=== PATIENT | male | born 1960 | race Caucasian/White ===

== ENCOUNTER → 2019-09-10 13:21 | Outpatient (CLI) | payer MEDICARE, SELFPAY ==
--- NOTE | 2019-09-10 14:00 | SP.MBSS_ITS ---
PRIMARY / SECONDARY DIAGNOSIS: dysphagia (R13.12) REFERRING PHYSICIAN: TOMAS Stevens CURRENT DIET: mechanical soft textures, thin liquids DENTITION: edentulous MENTAL STATUS: sufficient for participation RESPIRATORY STATUS: O2 via room air REASON FOR REFERRAL: The Patient is a 58 year old male referred for a modified barium swallow (MBS) study to objectively assess the Patients oropharyngeal swallow function under fluoroscopy secondary to the diagnosis of amyotrophic lateral sclerosis. MEDICAL HISTORY: Amyotrophic lateral sclerosis, hypertension PREVIOUS MODIFIED BARIUM SWALLOW STUDY: None ASSESSMENT PARAMETERS: The Patient participated in a Modified Barium Swallow (MBS) study on 09/10/2019. This study was recorded in the lateral view and images were sent to PACs for storage. Scoring was completed through each trial using the 8- point Penetration-Aspiration Scale (PAS) and the Videofluoroscopic Scale Score (VSS), and summarized via the Modified Barium Swallow Impairment Profile (MBSImP) and the Bolus Residue Scale (BRS), with severity scoring through the Dysphagia Severity Rating Scale (DSRS), the Swallowing Performance Scale (SPS) and the Karen ALS Severity Scale (ALSSS), and recommended diet textures through the International Dysphagia Diet Standardisation Initiative (IDDSI) RESULTS OF THE EVALUATION: The Patient presents with moderate oropharyngeal dysphagia (DSRS: 4; SPS: 5; ALSSS: 5-6) with grade III SILENT aspiration of thin liquids and pharyngeal phase dysmotility secondary to the diagnosis of amyotrophic lateral sclerosis OBJECTIVE ASSESSMENT OF SWALLOW FUNCTION (QUANTITATIVE ? PER TRIAL): PENETRATION / ASPIRATION SCALE (VEGA): 1 = does not enter airway 2 = enters airway/above vocal folds/ejected 3 = enters airway/above vocal folds/not ejected 4 = enters airway/contacts vocal folds/ejected 5 = enters airway/contacts vocal folds/not ejected 6 = enters airway/below vocal folds/ejected 7 = enters airway/below vocal folds/not ejected despite effort 8 = enters airway/below vocal folds/no effort VIDEOFLOROSCOPIC SCALE SCORE (VEGA): Grade I = aspiration of material that has penetrated into the laryngeal vestibule, intact cough reflex Grade II = aspiration < 10 % of the bolus, intact cough reflex Grade III = aspiration of < 10 % of the bolus, reduced cough reflex or aspiration of > 10 % of the bolus, intact cough reflex Grade IV = aspiration of > 10 % of the bolus, reduced cough reflex PENETRATION / ASPIRATION SCALE (SCORE) WITH VIDEOFLOROSCOPIC SCALE SCORE: Thin liquid - 5 mL tsp.: 1 Thin liquids via cup (single sip): 1 Thin liquids via cup (single sip): 3 Thin liquids via cup (single sip): 1 Thin liquids via straw (sequential swallows): 8 ? Grade III Thin liquids via straw (chin tuck): 1 Thin liquids via straw (chin tuck): 1 Thin liquids via straw (chin tuck): 1 Pudding via spoon: 1 Thin liquids via straw (chin tuck): 1 Regular textured cookie: 1 Thin liquids via straw (chin tuck): 1 Thin liquids via straw (chin tuck): 1 [place] thickened liquids via cup (single sip): 1 [place] thickened liquids via cup (single sip): 1 [place] thickened liquids via cup (single sip): 1 OBJECTIVE ASSESSMENT OF SWALLOW FUNCTION (QUANTITATIVE ? AGGREGATE): MODIFIED BARIUM SWALLOW IMPAIRMENT PROFILE (MBSImP) LABIAL SEAL: 1 (of 4) interlabial escape, no progression TONGUE CONTROL: 2 (of 3) posterior escape < 50% BOLUS PREPARATION / MASTICATION: 2 (of 3) disorganized chewing; pieces unchewed BOLUS TRANSPORT / LINGUAL MOTION: 2 (of 4) slowed motion ORAL RESIDUE: 2 (of 4) residue collection on oral structures INITIATION OF PHARYNGEAL SWALLOW: 2 (of 4) posterior surface of epiglottis SOFT PALATE ELEVATION: 1 (of 4) trace column between soft palate & pharyngeal wall LARYNGEAL ELEVATION: 1 (of 3) partial superior movement / approximation ANTERIOR HYOID EXCURSION: 1 (of 2) partial movement EPIGLOTTIC MOVEMENT: 1 (of 2) partial inversion LARYNGEAL VESTIBULE CLOSURE: 1 (of 2) incomplete closure PHARYNGEAL STRIPPING WAVE: 1 (of 2) present / diminished PE SEGMENT OPENIN (of 3) partial distension / duration / obstruction TONGUE BASE RETRACTION: 3 (of 4) wide column of contrast PHARYNGEAL RESIDUE: 3 (of 4) majority of contrast remaining ESOPHAGEAL BOLUS CLEARANCE: 1 (of 4) esophageal retention BOLUS RESIDUE SCALE (BRS): 6 (of 6) residue in valleculae, pharyngeal wall, & piriforms OBJECTIVE ASSESSMENT OF SWALLOW FUNCTION (SEVERITY GRADING): DYSPHAGIA SEVERITY RATING SCALE (DSRS): 4 (moderate) SWALLOWING PERFORMANCE SCALE (SPS): 5 (moderate) KAREN ALS SEVERITY SCALE (ALSSS): 5-6 (of 10) limited to soft foods / liquefied OBJECTIVE ASSESSMENT OF SWALLOW FUNCTION (QUALITATIVE): ORAL PREPARATORY PHASE: mastication inefficiency with prolonged mastication, with incomplete bolus breakdown further complicating pharyngeal phase motility; sufficient anterior oral containment during oral manipulation; preserved management of breathing / bolus formation. ORAL TRANSITIONAL PHASE: slowed / intermittently delayed oral transportation with fragmented swallowing (piecemeal deglutition) and incomplete bolus consolidation; impaired oral clearance without side specific consolidation; occasional premature posterior bolus loss PHARYNGEAL PHASE: mild pharyngeal phase dyssynchrony reduction in hyolaryngeal excursion and duration resulting inconsistent laryngeal vestibule pressure generated to expel penetrated material; significant pharyngeal dysmotility most prominently with semi-solids and solid textures with at times significant post prandial consolidation within the vallecula and pyriforms; mild velopharyngeal insufficiency without nasoregurgitation ESOPHAGEAL PHASE: mild post prandial retention within the upper esophageal sphincter and upper 3rd of the esophagus no obvious esophageal phase abnormalities observed. CONTRIBUTING / COMPLICATING FACTORS AND NOTABLE FINDINGS: weak cued volitional cough intensity generated to expel penetrated material (dystussia); absent cough in response to tracheobronchial aspiration; RESPONSE TO STRATEGIES: all deficits managed successfully with reduction in bolus rate / volume adjustments, diet texture / viscosity adjustments, and execution of the chin tuck posture. DYSPHAGIA ASSOCIATED MEDICAL CONSIDERATIONS / INTERVENTION CONSIDERATIONS: The Patient was noted to SILENTLY aspirate with thin liquids, with clinical assessment at bedside relying on identification of classic overt signs and symptoms of aspiration considered unreliable. I would discourage clinical advancement past nectar thickened liquids without completion of a repeat modified barium swallow study due to the extent of aspirate identified that was SILENT in nature. I would consider the Patient to be at a higher risk of aspiration related medical complications / aspiration pneumonia / aspiration related pulmonary syndrome secondary to the diagnosis of amyotrophic lateral sclerosis, the presence of dysphagia and extensive pharyngeal phase impairment, presence of SILENT aspiration identified under fluoroscopy, potential for tracheobronchial aspiration of more dense viscosities, his compromised airway defenses (dystussia), and his suboptimal dentition (partial edentulous status), with no guarantee of prolonged tolerance of nectar thickened liquids. I would recommend continued careful monitoring of pulmonary functioning. I would consider this Patient to be a high risk for malnutrition and dehydration due to the extent of recommended liquid viscosities / diet texture restrictions, and the related negative impact on palatability / intake pleasure / quality of life and anticipated smaller PO intake quantities, higher risk for early satiety with recommended thicker viscosities, and reduced rate of intake with slower viscosities, poor oral control and concomitant anterior fluid loss, recent unintended weight loss, the presence of neurogenic comorbidities, and the severity of dysphagia. The Patient may require intervention to reduce the risk of malnutrition, with considerations for food enrichment, oral nutritional supplementation, and likely considerations for alternative means of nutrition. I would strongly consider a referral to a registered clinical dietitian. I would consider implementation of the Long Free Water Protocol (FFWP) following Patient and family education I would consider the Patient to be a higher risk of non-compliance with dietary recommendations secondary to the presence of cognitive abnormalities, cost / financial considerations; distaste of altered liquid viscosities / diet texture recommendations and their negative impact on quality of life, with overall low compliance rates reported (40%; Chaitanya et al. 2012). I would consider the Patients quality of life if the Patient and Patient?s family request advancement to less restrictive diet due to the progressive nature of the Patient?s disorders, ONLY if all parties comprehend the severity of the Patient?s swallow deficits and concomitant medical complications associated with silent aspiration. Otherwise a follow up Modified Barium Swallow study is indicated prior to advancement to thin liquids. INTERVENTION RECOMMENDATIONS AND CONSIDERATIONS: The Patient continued skilled speech-language intervention targeting diet texture management and training / implementation of recommended compensatory strategies; training and implementation of a home oral care protocol to reduce the effects of xerostomia and improve / maintain the integrity of the oral mucosa reducing the risk of aspiration related pulmonary complications; training, implementation, and Patient / caregiver education regarding implementation of the Long Free Water Protocol (FFWP); Patient and caregiver education regarding dysphagia associated with amyotrophic lateral sclerosis; and Patient / caregiver training targeting meal preparation / thickened liquid preparation POST ASSESSMENT EDUCATION: The results and recommendations of the assessment were discussed with the Patient immediately following assessment completion, with the Patient verbalizing understanding and agreement with all recommendations and education provided. I discussed factors impacting effects of aspiration, to include the quantity of aspiration, the depth of aspiration (trachea or distal airways), and the physical properties of the aspirate. We discussed the potential consequences of oropharyngeal dysphagia, to include pulmonary complications from tracheobronchial aspiration; potential for airway obstruction / asphyxiation; potential and currently experienced inadequate oral intake because of dysphagia; reduced liquid intake resulting in dehydration; reduced caloric intake resulting in unintentional and potentially medically complicating loss of weight; impairment in mental and physical condition, and increased risk for mortality / . We discussed potential complicating factors with nutritional management and dysphagia, and discussed that decisions to commence enteral tube feeding should be carefully balanced against the individual?s known wishes and impact on his / her quality of life. We discussed the benefits and risks associated with alternative means of nutrition, with increased access to caloric supplementation and reduce hydration deficits, in addition to possible reduction in stress associated with mealtimes, though gastrostomy feeding does not significantly reduce aspiration risk and may lead to reduced quality of life. DIET TEXTURE RECOMMENDATIONS: Will recommend a mechanical soft textured (IDDSI: 5), nectar thickened liquid (IDDSI: 2) diet RECOMMENDED COMPENSATORY STRATEGIES: Distant supervision (though this may be complicated given his independent status), execution of the chin tuck posture, reduced bolus volume / rate of ingestion, liquid chaser at reasonable intervals, alternate bites and sips, seated upright at 90 degrees during PO intake, remain upright for 30-60 minutes post meal (GERD precaution), medications one at a time with purees. IMAGE COUNT: [id number] Sal Nation M.A., CCC-AUTOMATIC DRY STARCH OPERATOR, CBIS MBSImP Certified, LSVT Certified [facility] Speech-Language Pathology Department [email or web address]
== END ==
LOC: RAD 13:22
PROVIDERS: Referring Provider Nurse Practitioner Family; Visit Provider Nurse Practitioner Family
DX: R13.10 Dysphagia, unspecified (principal)
CPT/HCPCS: 76000; 92611

== ENCOUNTER 2019-09-12 09:00 | Outpatient (RCR) | payer MEDICARE, SELFPAY ==
--- NOTE | 2019-08-06 13:47 | HP.PTEVAL ---
Patient's Visit Information VISHAL MONZON is a 58 year old M referred to Physical Therapy by FLOR StevensC with a diagnosis of ALS. Date of Evaluation: 08/06/19 Physical Therapist: Elliot Perez, ALCIRAT, OCS, CSCS - Visit Plan Frequency: 2-3x /Week Duration: 4-6 Weeks Plan: 2-3x/week for 4-6 weeks for... 1. rollotu and stretch ITB, quads, HS adn teach home stretches. 2. general postural and LE, (Df, hips,knees,) strength to HEP. 3. Balance with SLS, foam and VOR to I HEP and functional balance, careful with foot drop. - Subjective Findings: Neurologist sent for PT. Has ALS and been diagnosed for 18 months. No therapy up to this point needed. Started neuro with hand deformities. Falls every now and then about 1-2x/week, no cane or walker. I just don't Has wh walker adn cane. Typically doesn't get hurt when he falls and does not wish to use them. No dizzyness. Sleeping is fine 10 hours per night. Spends day sitting around the house. No regular exercises. Lives with niece. She is home alld ay. He cleans and cooks, bathes. Steps and ramp at home which he uses the ramp. steps are too hard. Dresses self, slow but no problems. Can tie shoes but hard to do. Zips pants but cannot button them. Not employed , on disability due to hands. Was a delivery truck driver heavy for 22 years. - Objective Walks slightly hunched adn B foot slap slow and trendelenberg B slightly but safe adn I on firm flat surface back to [facility] room and for FGA. Appears safer with walker adn cane and Mod I with these devices today. Trasnfers with UE I sit to stadn and supine to sit. Steps require B UE and plots of pulling as he does not shift his weight well. UE AROM WFL and strength 4- except L ext rotation shoulder 3+ with some slight pain. LE AROM WFL except DF limited to -5 degrees against gravity and passively to neutral. Strength DF3-, ev 3, inv 3 adn PF 3+ all B. Hip strength abd and ext 3+ and flexion 4-. knee flexion and extension 4-. Very tight quads and HS at -25 90/90 test, also ITB tightness B. reflexes 3/3 patella and achilles. Coordination to reciprocal heel tap is OK but toe tap hard due to DF weakness. Has ALS hand deformities B with proximal phalange in ext. Pt will see OT today. Talks fairly well but deficits in enunciationa nd volume and wants to see speech which he says he is. Will need a prescription to have that done here. - Balance Scores Functional Gait Assessment Score: 22 % Disability: 26.6700 CATSIB Score (Max score 120 seconds): 88 - Goals Goal 1:: Pt I in appropr balance, strength, stretch ex to help manage deficits via HEP Goal Time Frame: 4-6 Weeks Goal 2:: Pt feel 50% improved in balance and mobility Goal Time Frame: 4-6 Weeks Goal 3:: FGA to diminish fall risk. Goal Time Frame: 4-6 Weeks Goal 4:: LEFS <50% disability. Goal Time Frame: 4-6 Weeks - Rehabilitation Potential Physical Therapy Diagnosis: ALS related weakness and tightness and imbalance Rehabilitation Potential: Questionable - Anticipated Interventions Patient/Client Instruction: Educate patient on: Condition, Plan of Care For the Purpose of:: To improve muscle performance and motor function, To increase tolerance to activity/condition/position, To improve gait and locomotor functions, To improve safety Therapeutic Exercise to Include: Strength training, Postural training, Flexibilty training, Passive ROM, Active ROM For the Purpose of:: To improve muscle performance and motor function, To increase tolerance to activity/condition/position, To improve ability of physical actions for home/community/work/leisure, To improve safety Thank you for the opportunity to evaluate your patient. For Medicare and Medicare HMO plans, please review the plan of care and approve it. It will need to be FAXED BACK to us at [phone] for Medicare purposes. For Medicare only, by signing this I certify the plan of care. Please let me know if there are questions or concerns regarding this plan of care. Physician Signature: Date:
--- NOTE | 2019-08-06 19:47 | HP.OTEVAL_ITS ---
Patient's Visit Information VISHAL MONZON is a 58 year old M, referred to Occupational Therapy by Rosana Mcintosh, TOMAS, with a diagnosis of ALS. Date of Evaluation: 08/06/19 Occupational Therapist: Renetta Guzmán, OTR/L - Subjective Subjective: Arrived post PT eval. Vishal Greenwood noted he was recently diagnosed with ALS two months ago. He noted that he lives with niece (72 y/o) who is able to help as needed. He noted increased difficulty with turning keys, increased time with lower body dressing, and general fatigue management and maintaining independence. 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 Noted that he really started ?feeling the affects of ALS after losing job?. - ADLs Dressing: Pants, Socks, Shoes Fasteners: Tie shoes Eating: Use silverware, Cut food, Drink from glass Kitchen: Chop with knife, Peel fruits & vegetables, Open jars, Open bottle caps, Ziplock bags, Lift gallon of milk Yard: Mow lawn Comments: Mows yard in summer but not needed at this time. Miscellaneous: Write Comments: Timo is R hand dominant. - Objective Objective/Observation: Good skin integrity observed. Beginning of contracture formation starting at PIP of B hand; All PIP are able to be passively moved to neutral; thenar atrophy noted in bilateral thumbs. - ROM Shoulder: WFL Elbow: WFL Forearm: WFL Wrist: WFL MP: 2-5thR -10-0-92, -4-0-94, -11-0-87, -14-0-84; L -23-0-91, -25-0-94, see PIP: 2-5th R 30-103, 24-105 , 22-107, 20-99; L 42-94, 40-98, 46-100, 42-92 DIP: WFL ROM Comments: MP continued: L 4th -26-0-90, 5th -30-0-82. He is still able to make full composite. Able to complete thumb oppoisition to 2-4th fingers. - Strength Media Liaison Officer: flexed position 2 R 26, L 15; ext position R 29, L 15 Lateral Pinch: R 4, L 5 Tripod Pinch: R 2, L 3 Tip-to-Tip Pinch: R 3, L 2 - Sensation Sensation Comments: denies numbness or tingling. - Movement Ataxia: intact Muscle Tone: increase inflexor tone starting to be observed - Attention Attention: Normal - Quick DASH-Disab of Arm,Shoulder& Hand Quick DASH Score: 65.9075 - Goals Goal:: Timo to complete protective splinting program to promote decrease risk of contracture of B hands and maintain (I) for ADL/IADLS by d/c. Goal:: Timo to be (I) with adaptations and compensations for decreased dexterity and coordination secondary to ALDS and ways to adapt tasks to promote B hand use 4/5 trials 80% of the time by d/c. Goal:: Timo to be mod I with proper use and training of self-feeding, kitchen and simple meal prep, self-care tasks of grooming, dressing, and bathing with use of a/e, DME, and adaptive strategies and compensations to promote safety and general quality of life to maintain independence 4/5 trials 80% of the time by d/c. Goal:: Timo to completed daily use of protective splint measurements and application through wearing schedule to help decrease formation of contractures and promote increased ability to maintain motor movements while disease progresses by d/c. Goal:: Timo to be (i) to complete daily energy conservation techniques at home and in the community to promote increased ability to maintain indepdence and quality of life 4/5 trials 80% of the time by d/c. - Rehabilitation General Assessment: Vishal Greenwood completed OT evaluation on this date of 08/06/19. He has recently been diagnosed with ALS and experiencing a loss of independence and function in bilateral hands. He is looking for ways to maintain independence. Timo to complete skill OT to promote training in a/d, DME, and compensations to promote energy conservation, independence with ADL/IADls, as well as general quality of life. OT to work on HEP set up and training to promote maintained strength as able with energy conservation techniques to maintain independence. Timo to complete OT 1x weekly for the next 4 weeks. Rehabilitation Potential: Good - Anticipated Interventions Anticipated Interventions: A/AAROM/PROM, Strengthening, Scar Care, Modalities, Joint Protection/Energy Conservation, Fine Motor Coord/Francois, ADL Training, Education re assistive Equipment, Caregiver Training, Home Program - Visit Plan Frequency: 1x/Week Duration: 4 Weeks General Plan: Timo to complete weekly skilled Ot intervention to promote increased ability to complete energy conservation techniques into daily routine, maintain current independence and promote safety with ADL/IADLS, as well as contracture manage to help slow and cope with the progression of ALS for ADL/IADls. TEXT: Thank you for the opportunity to evaluate your patient. For Medicare and Medicare HMO plans, please review the plan of care and approve it. It will need to be FAXED BACK to us at [phone] for Medicare purposes. Please let me know if there are questions or concerns regarding this plan of care. Physician Signature: Date:
--- NOTE | 2019-08-27 10:19 | HP.PTDCSUM ---
HP - PT D/C Summary It has been my pleasure to treat VISHAL MONZON under orders from Rosana Mcintosh, CARSON-C, for the diagnosis of ALS for a total of 10 visit(s). Discharge Date: 08/27/19 Please see the following information for a summary of their discharge status. - Subjective Subjective: Legs feel stronger. Got exercises to do at home. - Overall Improvement % Improvement: 80 - Objective Objective/Function: FGA is +1. LEFS is 20 points better. Patient walking well, still has -3 active DF B and weakness anterior ankles 3- but is functioning well. Is I with HEP at counter for safety. - Goals Goal 1:: Pt I in appropr balance, strength, stretch ex to help manage deficits via HEP Goal 2:: Pt feel 50% improved in balance and mobility Goal Progress: Goal Met Goal 3:: FGA to diminish fall risk. Goal Progress: Progressing Goal 4:: LEFS <50% disability. Goal Progress: Met, ??? - Plan Plan: d/c pt request to HEP - D/C Information Discharge Comments: Pt will continue HEP until sees doctor end of month. Did not wish to f/u with PT but should be sent back if concerns. If there are questions or concerns regarding this patient's physical therapy, please feel free to call me at [phone]. Thank you for the referral of this patient. Sincerely, Elliot Perez, DPT, OCS, CSCS
--- NOTE | 2019-09-05 09:00 | SOAP_ITS ---
REASON FOR REFERRAL: The Patient is a 58 year old male referred for a clinical assessment of the swallow function and the Patients cognitive communication abilities at [facility] on 09/05/2019 secondary to the diagnosis of multiple sclerosis. The Patient was recently diagnosed in June of this year following initial bilateral upper extremity weakness (hands) that began approximately 1 year prior, which had progressed to involvement of speech and mastication / deglutition over the past few months. The Patient reports intermittent coughing during ingestion of both thin and solid textures, with the Patient avoiding certain solid textures (nuts, hard candies) in anticipation of poor outcome (coughing); he denies issues with globus sensation / sensations of bolus stasis or sensation of nasopharyngeal reflux. He reports an overall 12-14 lb. weight loss (baseline ~185-190 lbs.; current 163 lbs.) over the past 3-6 months with a notable reduction in appetite. He has initially stated that he does not want a feeding tube, though is open to further education and exploration of the topic following discussion this date. He denies the presence of odynophagia (pain during swallow). He denies issues with xerostomia (dry mouth). He denies issues with diurnal sialorrhea (drooling during the daytime), though does report nocturnal sialorrhea. He denies hypogeusia (reduced taste), dysgeusia (abnormal / unpleasant taste), cacogeusia (strongly revolting taste), ageusia (absence of taste), or hyposmia (reduced smell). He denies any issues with reflux / heartburn, globus sensation, substernal discomfort, or feelings of bolus stasis. He denies suboptimal intake behaviors (tachyphagia, bolus bolting, or aerophagia). He does report recent treatment for unexplained asthma symptoms with antibiotics (unable to provide specifics) with intermittent moist coughing appreciated; he denies any further current or previous issues with aspiration related pulmonary complications, to include pneumonia, bronchitis, or unexplained asthma symptoms. Upon collection of case history he appears cognitively intact; his affect appears appropriate. Again he reports difficulties with expressive communication associated with a persistent neurogenic based dysarthria over the past 3-6 months which has significantly impacted his ability to convey wants and needs; he is open to further exploration of low and high tech augmentative and alternative communication (AAC) devices. The Patient is fully ambulatory (albeit slow and labored), no difficulties with posture maintenance; appears somewhat under nourished. He reports he lives with his niece (Darline), though is independent for all ADLs and IADLs, and is a community hazmat tanker driver. He has 2 children, though all live out of [facility] ([place], [place]). 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 MEDICAL HISTORY: Amyotrophic lateral sclerosis, hypertension. PREVIOUS MODIFIED BARIUM SWALLOW STUDY: None FUNCTIONAL STATUS ASSESSMENT RESULTS: [place] Index of [place] in Activities of Daily Livin/6 Bathin Dressin Toiletin Transferrin Continence: 1 Feedin Stacy ? Angel Instrumental Activities of Daily Living Scale (IADL): 02/27 Ability to Use Telephone: 1 Shoppin Food Preparation: 1 Housekeepin Laundry: 1 Mode of Transportation: 1 Responsibility for Own Medications: 1 Ability to Handle Finances: 1 Functional Ambulation Category (FAC): 5 (ambulator- independent) ORAL MOTOR / MODIFIED CRANIAL NERVE ASSESSMENT: CNV, VII, IX, X, and XII appear grossly intact, though rather diminished. Edentulous upper / lower status; reports obtaining dentures earlier this year, though does not wear (ill fitting). Mild xerostomia (dry mouth); no presence of diurnal sialorrhea (drooling during daytime); does report nocturnal sialorrhea (drooling during sleep / nighttime). Impaired cough intensity (dystussia). Clear dysarthria. SUPPLEMENTARY DYSPHAGIA ASSESSMENT RESULTS: Reflux Symptom Index (RSI): 14 (>13 may indicate significant reflux) [facility] Xerostomia Questionnaire: Eating Assessment Tool ? 10 (EAT-10): 13 (3+ may represent dysphagia) CLINICAL ASSESSMENT OF SWALLOW FUNCTION (QUANTITATIVE): Repetitive Saliva Swallowing Test (RSST): Pass; > 2 dry swallows within 30 seconds. 1oz Water Swallowing Test (1oz WST): Normal ? 1 (of 5); single swallow without coughing 3oz Water Swallow Test (3oz WST): DNT (declined participation, anticipating issue) Daley 6 Factors: 5 - moderate to severe (2 + clinical predictors) Dysphonia: positive Dysarthria: positive Abnormal gag response: positive Abnormal volitional cough: positive Cough after swallowing: negative Post prandial coughing: negative Voice changes after swallow: negative Post prandial voice changes: positive Cárdenas Assessment of Swallowing Ability (MASA): 161 (moderate) MASA Aspiration Severity Score: 161 (mild) MASA Dysphagia Risk Rating: Definite; strong evidence for disorder Clinical Assessment of Dysphagia in Neurodegeneration (CADN): Part 1 Anamnesis: 7 (profound) Part 2 Intake: 4 (severe) FINAL SCORE: 7 (severe or profound; high aspiration risk) Swallowing Performance Scale (SPS): 5 (moderate) CLINICAL ASSESSMENT OF SWALLOW FUNCTION (QUALITATIVE): ORAL PREPARATORY PHASE: mild mastication inefficiency with prolonged mastication complicated by edentulous status; sufficient anterior oral containment during manipulation; preserved management of breathing / bolus formation ORAL TRANSITIONAL PHASE: no signs of transitional incompetence; no signs of bolus consolidation impairments; impaired oral clearance with solid textures without side specific consolidation; no signs or symptoms of premature posterior bolus loss PHARYNGEAL PHASE: appropriate hyolaryngeal excursion upon digital palpation; no obvious findings suggestive of pharyngeal phase delay / dyssynchrony; occasional multiple swallows during trials of smaller / rather manageable bolus volumes that may suggest pharyngeal dysmotility, intermittent post prandial moist vocal quality ESOPHAGEAL PHASE: esophageal phase appears unremarkable COGNITIVE COMMUNICATION ASSESSMENT RESULTS (QUANTITATIVE): ALS Cognitive Behavioral Screen (ALS-CBS): Cognitive Section Total: 11/09 (high suspicion of impairment) Attention: 1/5 Concentration: 2/5 Tracking / Monitorin/5 Initiation and Retrieval: 0/5 Behavioral Section Total: no caregiver present COGNITIVE COMMUNICATION ASSESSMENT RESULTS (QUALITATIVE): COMMUNICATION FUNCTIONING: moderate dysarthria with mild hypernasality; noted dysgraphia; no aphasia, apraxia, anomia, or alexia noted. COGNITIVE FUNCTIONING: suspected difficulties with cognitive initiation following a complete inability to initiate either the alternating attention tasks or the generative naming tasks of the ALS-CBS; mild to moderate bradyphrenia; impaired attention particularly with regards to more complex attention subdomains; he may benefit from further investigation into his cognitive functioning prior to advancing with obtaining a dedicated AAC device. RESULTS OF THE EVALUATION: The Patient presents with moderate dysphagia, moderate dysarthria, and suspected moderate cognitive based deficits secondary to the diagnosis of amyotrophic lateral sclerosis INTERVENTION CONSIDERATIONS: I would consider the Patient to be at higher risk for risk for aspiration secondary to the diagnosis of amyotrophic lateral sclerosis, the presence and significance of dysphagia, and his abnormal Don?s 6 factors results (2 or more clinical predictors; 4 positive), compromised airway defenses. I would consider the Patient to be at a higher risk for silent aspiration when considering the presence of dystussia and diagnosis of amyotrophic lateral sclerosis. I cannot definitively rule out silent aspiration at bedside, with the Patient considered to be at a much higher risk of silent aspiration across all consistencies given the diagnosis and progression of amyotrophic lateral sclerosis. The Patient requires further assessment of the oropharyngeal swallow function under fluoroscopy given the etiology of cause, and very high likelihood for pharyngeal and nasopharyngeal based deficits. This will additionally provide an excellent opportunity for biofeedback through the images obtained to further educate the Patient and family as to the extent of deficits she is experiencing. The Patient is considered to be at a higher risk of aspiration related medical complications / aspiration pneumonia / aspiration related pulmonary syndrome secondary to the diagnosis of amyotrophic lateral sclerosis, his presence of dysphagia and anticipated continual deterioration of the oral and pharyngeal phases of deglutition, anticipated presence of SILENT aspiration at some point of the disease progression, the potential for tracheobronchial aspiration of more dense viscosities, his compromised airway defenses (dystussia), his suboptimal dental status (edentulous), his eventual limitations with mobility, his eventual dependent for feeding with current assistive devices in place (built up silverware), and an anticipated presence of malnutrition. The Patent is at a somewhat higher risk of oropharyngeal colonization with respiratory pathogens secondary to the presence of malnutrition, impaired salivary clearance (risk would unfortunately increase with the presence of supplemental feeding). I will recommend an aggressive oral care program that includes pre-rinse use prior to water intake; routine oral care / denture care in the a.m., prior to oral intake, after oral intake, and prior to bed via toothbrush / swab / rinse; use of oral moisturizers as needed; and frequent dental checkups. I would consider this Patient to be at high risk for malnutrition and dehydration due to his current anticipated declining oral control adequacy and concomitant anterior fluid loss, recent unintentional weight loss (likely effected by dysphagia), and the presence of neurogenic comorbidities. He may require intervention to reduce the risk of malnutrition, with considerations for food enrichment, oral nutritional supplementation, and considerations for alternative means of nutrition. I would strongly consider a referral to a registered clinical dietitian. I would consider the Patient to be at higher risk of non-compliance with dietary recommendations secondary to cost / financial considerations and distaste of altered liquid viscosities / diet texture recommendations (if / when placed), with overall low compliance rates reported (40%; Chaitanya et al. 2012). INTERVENTION CONSIDERATIONS AND RECOMMENDATIONS: The Patient requires intensive skilled speech-language intervention targeting diet texture management and training / implementation of recommended compensatory strategies; training and implementation of a home oral care protocol to reduce the effects of xerostomia and improve / maintain the integrity of the oral mucosa reducing the risk of aspiration related pulmonary complications; training, implementation, and Patient / caregiver education regarding implementation of the Long Free Water Protocol (FFWP); Patient education regarding amyotrophic lateral sclerosis and associated dysphagia and dysarthria; Patient and caregiver training targeting meal preparation / thickened liquid preparation; Patient education and training regarding use of AAC communication devices; Patient education regarding expressive communication strategies to promote improved speech intelligibility (guarded prognosis); with goal adjustment pending MBS completion. RECOMMENDATIONS FOR INTERVENTION: The Patient requires intensive skilled speech-language intervention targeting diet texture management and training / implementation of recommended compensatory strategies; training and implementation of a home oral care protocol to reduce the effects of xerostomia and improve / maintain the integrity of the oral mucosa reducing the risk of aspiration related pulmonary complications; training, implementation, and Patient / caregiver education regarding implementation of the Long Free Water Protocol (FFWP); Patient education regarding amyotrophic lateral sclerosis and associated dysphagia and dysarthria; Patient and caregiver training targeting meal preparation / thickened liquid preparation; Patient education and training regarding use of AAC communication devices; Patient education regarding expressive communication strategies to promote improved speech intelligibility (guarded prognosis); with goal adjustment pending MBS completion. POST ASSESSMENT EDUCATION: The results and recommendations of the assessment were discussed with the Patient immediately following assessment completion, with the Patient verbalizing understanding and agreement with all recommendations and education provided. I discussed factors impacting effects of aspiration, to include the quantity of aspiration, the depth of aspiration (trachea or distal airways), and the physical properties of the aspirate. We discussed the potential consequences of oropharyngeal dysphagia, to include pulmonary complications from tracheobronchial aspiration; potential for airway obstruction / asphyxiation; potential and currently experienced inadequate oral intake because of dysphagia; reduced liquid intake resulting in dehydration; reduced caloric intake resulting in unintentional and potentially medically complicating loss of weight; impairment in mental and physical condition, and increased risk for mortality / . We discussed potential complicating factors with nutritional management and dysphagia, and discussed that decisions to commence enteral tube feeding should be carefully balanced against the individual?s known wishes and impact on his / her quality of life. We discussed the benefits and risks associated with alternative means of nutrition, with increased access to caloric supplementation and reduce hydration deficits, in addition to possible reduction in stress associated with mealtimes, though gastrostomy feeding does not significantly reduce aspiration risk and may lead to reduced quality of life. I discussed the overall poor prognosis for recovery given the rapid deterioration and nature of the disorder, with a compensatory approach with dietary alterations likely to provide the highest level of results, with samaritan through oropharyngeal based exercises lacking in clinical evidence, with higher risk of fatigue and exacerbation of deficits during intake. We discussed alternative routes of nutrition, and the high likelihood that this will need to be considered at some point; we further discussed that, similar to AAC devices, alternative supplementation does not necessarily preclude the Patient from any PO intake, rather supplements the Patients caloric intake quantities. We discussed the effects on quality of life, and the benefit of receiving as much information as needed prior to making decisions regarding his health management particularly regarding expressive language sufficiency and most importantly PO intake / supplementation, and suspect that a large portion of intervention will center on Patient education and counseling, and would be extremely beneficial to both the Patient and family. DIET TEXTURE RECOMMENDATIONS: Will recommend a mechanical soft textured (IDDSI: 5), thin liquid diet (IDDSI: 0) diet RECOMMENDED COMPENSATORY STRATEGIES: Reduced bolus volume / rate of ingestion, at minimum cut solids into bite sized pieces, seated upright at 90 degrees during PO intake, remain upright for 30-60 minutes post meal (GERD precaution), medications one at a time with a liquid chaser. FUNCTIONAL OUTCOMES: OUTCOME 1: the Patient will tolerate the least restrictive means of nutrition to facilitate adequate hydration / nutrition with optimum safety and efficiency of swallowing function during P.O. intake without overt signs and symptoms of aspiration. OUTCOME 2: the Patient will demonstrate and utilize recommended compensatory swallowing techniques to facilitate improved airway protection and decreased risk for aspiration during PO intake. OUTCOME 3: the Patient will participate in a Modified Barium Swallow (MBS) study to objectively assess the Patient?s oropharyngeal swallowing function, to determine the least restrictive means of nutrition, to objectively assess the effectiveness of previously identified strategies / precautions, and to identify appropriate intervention approaches / strategies to implement during treatment sessions at the supervised level. OUTCOME 4: the Patient will independently demonstrate and utilize recommended compensatory articulation techniques (increased vocal intensity, reduced rate of speech) to facilitate increased expressive communication abilities in the home and social environments. OUTCOME 5: the Patient will participate in continual assessment of the communication profile to determine the appropriateness for alternative and augmentative communication device implementation at the supervised level OUTCOME 6: goal adjustment as needed post MBS Sal Nation M.A., CCC-SECURITY POLICE OFFICER, CBIS MBSImP Certified, LSVT Certified [facility] Speech-Language Pathology Department [email or web address]
--- NOTE | 2019-09-09 13:12 | HP.OTREVAL ---
Rosana Mcintosh, TESTER ROCKET ENGINE-C, It has been my pleasure to treat VISHAL MONZON over the last 4 visits for ALS. Please see the progress note below for an update on the occupational therapy plan of care! Subjective: Arrived and noted things are going okay at home. He feels 90% more confident with tools to maintain (I) for ADL/IADLs. Objective/Function: Completed measurements and results as follows: ROM: Hands: MCP. 2nd R 20-99, L -19-0-94. 3rd R 0-95, L -23-0-92. 4th R 0-91, L -20-0-88. 5th R 0-87, L -21-0-82. PIP. 2nd R 40-100, L 51-97. 3rd R 41-103, L 53-100. 4th R 25-107, L 53-104. 5th R 23-96, L 47-95. DIP. 2nd R 0-53, L 13-62. 3rd R 0-46, L 0-68. 4th R 0-36, L 5-68. 5th R 0-52, L 40-69. Able to make composite fist but ROM decreased from initial evaluation. Strength: director of career resources flexed R 24, L 14. director of career resources ext R 24, L 14. lateral pinch R 4, L 4. tripod R 4, L 2 Plan Frequency: 1x/Week Duration: 2 Weeks Visits in this POC: 5 Plan: Medical hold until order received for B hand resting hand splints; request was refaxed. Will follow-up in two weeks when order recieved. Provided information where he will be referred for splint, [facility]. OT has reached out for [facility] social work, he verbalized agreement, fro further help setting up additional home based needs. Goals - Goals Goal:: Timo to complete protective splinting program to promote decrease risk of contracture of B hands and maintain (I) for ADL/IADLS by d/c. Goal:: Timo to be (I) with adaptations and compensations for decreased dexterity and coordination secondary to ALDS and ways to adapt tasks to promote B hand use 4/5 trials 80% of the time by d/c. Goal:: Timo to be mod I with proper use and training of self-feeding, kitchen and simple meal prep, self-care tasks of grooming, dressing, and bathing with use of a/e, DME, and adaptive strategies and compensations to promote safety and general quality of life to maintain independence 4/5 trials 80% of the time by d/c. Goal:: Timo to completed daily use of protective splint measurements and application through wearing schedule to help decrease formation of contractures and promote increased ability to maintain motor movements while disease progresses by d/c. Goal:: Timo to be (i) to complete daily energy conservation techniques at home and in the community to promote increased ability to maintain indepdence and quality of life 4/5 trials 80% of the time by d/c. Anticipated Interventions Anticipated Interventions: A/AAROM/PROM, Strengthening, Scar Care, Modalities, Joint Protection/Energy Conservation, Fine Motor Coord/Francois, ADL Training, Education re assistive Equipment, Caregiver Training, Home Program Please do not hesitate to contact me at [phone] by phone or if you have questions or concerns regarding this new plan of care! Sincerely, SANTOS Snow/L
--- NOTE | 2019-09-13 14:48 | CASEMGMT ---
Social Work Consult: Resources Informant: MARBELLA Adams Telephone call to speak with patient. Patient with life limiting diagnosis, ALS with expected continued decline. Patient stating to live with Niece and to be able to care for self at this time but to be aware that patient might not be able to care for self in the future. Patient niece is older then patient and is not able to assist much. Patient niece is with patient 12/02. Patient open to this social service manager mailing patient resources for possible community supports. Resources gathered and mailed. Resources sent: [facility] CCN PASSPORT/Waiver [facility] Medical Alert [facility] Advanced Care Planning [place] MULLINS, BENJY
== END 2019-09-12 19:00 | disposition home or self-care (01) ==
LOC: SP 09:00
PROVIDERS: Referring Provider Nurse Practitioner Family; Visit Provider Nurse Practitioner Family
DX: G12.21 Amyotrophic lateral sclerosis (principal); R13.10 Dysphagia, unspecified; R47.89 Other speech disturbances
CPT/HCPCS: 92523; 92526; 92610; 97110; 97140; 97162; 97164; 97166; 97168; 97530; 97760

== ENCOUNTER → 2019-09-25 09:40 | Outpatient (CLI) | payer MEDICARE, MEDICAID, SELFPAY ==
[2019-09-23 09:23] VITALS: BMI 22.6
--- NOTE | 2019-09-25 15:34 | PFTCOMP ---
COMPLETE PULMONARY FUNCTION TEST INTERPRETATION Brief HPI: Patient is a 58 year old male, currently under the care of Dr. Galdamez, who presents to [facility] for complete pulmonary function tests secondary to diagnosis of new diagnosis ALS. Respiratory therapist reports good effort and reproducible results. Interpretation: Forced expiration spirometry shows no large airways obstructive ventilatory defect with an FEV1 of 75% predicted. There is no significant bronchodilator response by strict ATS criteria. Spirograms are of good quality and plateau normally. The respiratory flow volume loop shows decreased expiratory flow rates at high lung volumes consistent with small airways obstruction. Lung volumes by body plethysmography show a normal total lung capacity at 7.4 L, 107% predicted. All other lung volumes are within normal limits. Diffusion capacity by carbon monoxide is normal at 118% predicted. The airway resistance is normal. Patient's muscle strength was severely reduced with a MIP of 14% and a MEP of 12% predicted No previous pulmonary function tests were available for review. Impression: Pulmonary function tests are grossly within normal limits, but muscle strength is severely limited despite reported excellent effort, consistent with ALS
== END ==
PROVIDERS: PCP Family Medicine; Referring Provider Internal Medicine Critical Care Medicine; Visit Provider Internal Medicine Critical Care Medicine
DX: G12.21 Amyotrophic lateral sclerosis (principal)
CPT/HCPCS: 94060; 94726; 94729; 97162